=== PATIENT | female | born 1985 | race African-American/Black ===

== ENCOUNTER → 2020-04-26 | Outpatient (CLI) | payer OTHER ==
[~2020-04-26] MED LIST: E-Z-GAS II EFFERVESCENT PACKET (SODIUM BICARB./CITRIC ACID/SIMETHICONE) As Ordered ONE; E-Z-HD 98% w/w 340GM SUSP BTL As Ordered ONE; E-Z-PAQUE 96% w/w SUSP 176GM BTL As Ordered ONE
--- NOTE | 2020-04-27 09:17 | REP ---
Upper GI air contrast The procedure was performed under the direct supervision of Dr. hSukla. The images were reviewed with Dr. 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 The intestinal gas pattern is non-specific. There is a 6 cm calcified uterine fibroid in the left abdomen. Liquid barium and gas producing crystals were given in the erect position as well as liquid barium in the prone oblique position in order to perform a double contrast upper GI examination. The oral and pharyngeal stages of deglutition are unremarkable. Esophageal transport is prompt and efficient and there is no esophagitis, stricture or mucosal ring. There is a small sliding-type hiatal hernia. There is gastroesophageal reflux demonstrated to the level of the thoracic inlet. Within the stomach there is residual ingested material which limits evaluation. The stomach is grossly normal. The duodenal clay are normally outlined . The mucosal folds are smooth and regular. There is no duodenitis pancreatitis peptic ulcer disease or neoplasm. The visualized portion of the proximal small bowel appears normal in course and caliber. Impression: 1. There is a small sliding-type hiatal hernia. There is gastroesophageal reflux demonstrated to the level of the thoracic inlet. 2. There is residual ingested material in the stomach which limits evaluation. The stomach is grossly normal. 3. There is a 6 cm calcified uterine fibroid in the left abdomen. 2.2 minutes of fluoro time was utilized for this procedure. Electronically Signed by MAY Lopez 04/26/2020 03:38 P Electronically Signed by Star Shukla MD 04/27/2020 09:08 A
== END ==
LOC: M RAD 08:05
PROVIDERS: ATTEND Surgery
DX: Z01.818 Encounter for other preprocedural examination (principal); E66.01 Morbid (severe) obesity due to excess calories; K44.9 Diaphragmatic hernia without obstruction or gangrene; D21.9 Benign neoplasm of connective and other soft tissue, unspecified

== ENCOUNTER → 2020-06-21 | Outpatient (REF) | payer OTHER | LOC: M LAB REF 10:45 | PROVIDERS: ATTEND Nurse Practitioner Family | DX: E11.65 Type 2 diabetes mellitus with hyperglycemia (principal) ==